=== PATIENT | male | born 1995 | race Caucasian/White ===

== ENCOUNTER 2019-06-22 16:45 | Emergency (ER) | payer BC, OTHER ==
[2019-06-22 17:05] VITALS: BP 151/86
--- NOTE | 2019-06-22 17:22 | UC ---
Throat Pain/Nasal James HPI - HPI Summary HPI Summary: Pt presents with c/o worsening throat and jaw pain over the last 4 days. Pt states that he is UTD with tetanus vaccine, is able to breath, is afebrile and denies sob. Pt states that he has difficulty breathing while sleeping last night. Pt states it is "difficult to drink fluid". Denies recent insect bite, or injury - History of Current Complaint Chief Complaint: UCRespiratory Stated Complaint: ST,SWOLLEN TONGUE,HARD TO SWALLOW Time Seen by Provider: 06/22/19 17:18 Hx Obtained From: Patient Onset/Duration: Gradual Onset, Lasting Days, Still Present, Worse Since - osnet Severity: Severe Pain Intensity: 8 Cough: None Associated Signs & Symptoms: Positive: Dysphagia - Epiglottits Risk Factors Epiglottis Risk Factors: Muffled Voice, Worse w/Recumbent Position - Allergies/Home Medications Allergies/Adverse Reactions: Allergies Allergy/AdvReac Type Severity Reaction Status Date / Time No Known Allergies Allergy Verified 06/22/19 17:04 Home Medications: Home Medications NK [No Home Medications Reported] 06/22/19 [History Confirmed 06/22/19] PMH/Surg Hx/FS Hx/Imm Hx Previously Healthy: Yes - Surgical History Surgical History: None - Family History Known Family History: Positive: Cardiac Disease - Social History Occupation: Employed Full-time Lives: With Family Alcohol Use: None Substance Use Type: None Smoking Status (MU): Never Smoked Tobacco Have You Smoked in the Last Year: No - Immunization History Vaccination Up to Date: Yes Review of Systems All Other Systems Reviewed And Are Negative: Yes Constitutional: Positive: Negative Skin: Positive: Negative Eyes: Positive: Negative ENT: Positive: Sore Throat Respiratory: Positive: Negative Cardiovascular: Positive: Negative Gastrointestinal: Positive: Negative Genitourinary: Positive: Negative Motor: Positive: Negative Neurovascular: Positive: Negative Musculoskeletal: Positive: Negative Neurological: Positive: Negative Psychological: Positive: Negative Is Patient Immunocompromised?: No Physical Exam Triage Information Reviewed: Yes Appearance: Ill-Appearing, Pain Distress Vital Signs: Initial Vital Signs Temp 98.2 F 06/22/19 17:00 Pulse 80 06/22/19 17:00 Resp 18 06/22/19 17:00 BP 151/86 06/22/19 17:00 Pulse Ox 100 06/22/19 17:00 Vital Signs Reviewed: Yes Eye Exam: Normal ENT: Positive: Tonsillar swelling, Other - pt unable to open mouth wide for exam c/o of pain Dental Exam: Normal Neck exam: Normal Neck: Positive: Supple, Nontender, No Lymphadenopathy Respiratory Exam: Normal Respiratory: Positive: No respiratory distress Musculoskeletal Exam: Normal Neurological Exam: Normal Psychological Exam: Normal Skin Exam: Normal Throat Pain/Nasal Course/Dx - Differential Dx/Diagnosis Differential Diagnosis/HQI/PQRI: Peritonsillar Abscess, Tonsillitis, Other - epiglottis Provider Diagnosis: Dysphagia - Physician Notification/Consults Discussed Patient Care With: kavon ruiz - accepted pt Time Discussed With Above Provider: 17:20 - I asked if ENT veterinary surgeon and told no, but they would accept pt for evaluation Discharge - Sign-Out/Discharge Documenting (check all that apply): Patient Departure All imaging exams completed and their final reports reviewed: No Studies - Discharge Plan Condition: Stable Disposition: HOME-RECOMMEND TO ED Patient Education Materials: Tonsillitis (ED), Dysphagia (ED) Referrals: [facility] [Outside] - If Needed No Primary Care Phys,NOPCP [Primary Care Provider] - Additional Instructions: IT IS RECOMMENDED THAT YOU GO DIRECTLY TO THE CLOSEST EMERGENCY ROOM IMMEDIATELY. - Billing Disposition and Condition Condition: STABLE Disposition: Home-Recommend to ED
== END 2019-06-22 17:33 | disposition home health service (06) ==
LOC: UCCORT 16:45
DX: R13.10 Dysphagia, unspecified (principal)
CPT/HCPCS: 99202; G0463